=== PATIENT | female | born 1965 | race Two or more races ===

== ENCOUNTER → 2019-04-28 | Emergency (ER) | payer OTHER ==
[~2019-04-28] VITALS: Ht 162.6 cm; Wt 54.9 kg
[~2019-04-28] MED LIST: NORVASC5 MG; SYNTHROID100 MCG PO; SYNTHROID88 MCG; TENORMIN25 MG PO; TENORMIN50 M1
== END | disposition home or self-care (01) ==
LOC: ER 18:43
DX: I16.0 Hypertensive urgency (principal); I10 Essential (primary) hypertension

== ENCOUNTER → 2019-11-09 08:44 | Outpatient (CLI) | payer OTHER | END | disposition home or self-care (01) | LOC: LAB 08:44 | DX: E78.2 Mixed hyperlipidemia (principal); I10 Essential (primary) hypertension; E11.9 Type 2 diabetes mellitus without complications; E03.8 Other specified hypothyroidism; M81.0 Age-related osteoporosis without current pathological fracture ==

== ENCOUNTER → 2019-11-09 | Outpatient (CLI) | payer OTHER | END | disposition home or self-care (01) | LOC: RAD 07:56 | DX: I10 Essential (primary) hypertension (principal); I63.50 Cerebral infarction due to unspecified occlusion or stenosis of unspecified cerebral artery; E03.8 Other specified hypothyroidism ==

== ENCOUNTER 2020-12-15 16:31 | Emergency (ER) | payer OTHER ==
[~2020-12-15] VITALS: Ht 162.6 cm; Wt 55.3 kg
[2020-12-15] MEDS ORDERED: XANAX0.25 MG (17:07)
[2020-12-15] MEDS ORDERED: AVAPRO75 MG (17:07)
[2020-12-15] MEDS ORDERED: ZOLOFT50 MG (17:07)
== END 2020-12-16 00:33 | disposition home or self-care (01) ==
LOC: ER 16:31
DX: E03.8 Other specified hypothyroidism (principal); Z03.818 Encounter for observation for suspected exposure to other biological agents ruled out

== ENCOUNTER → 2021-01-02 09:32 | Outpatient (CLI) | payer OTHER ==
[~2021-01-02 09:32] MED LIST changes: +AVAPRO75 MG; +XANAX0.25 MG; +ZOLOFT50 MG
== END | disposition home or self-care (01) ==
LOC: LAB 09:32
PROVIDERS: ATTEND Neuromusculoskeletal Medicine & OMM
DX: G62.89 Other specified polyneuropathies (principal); R20.2 Paresthesia of skin; E03.8 Other specified hypothyroidism; E78.2 Mixed hyperlipidemia; G81.94 Hemiplegia, unspecified affecting left nondominant side; Q04.8 Other specified congenital malformations of brain; E11.9 Type 2 diabetes mellitus without complications